=== PATIENT | female | born 1980 | race Two or more races ===

== ENCOUNTER 2020-02-11 09:48 | Day surgery (SDC) | payer OTHER ==
[~2020-02-11 09:48] MED LIST: ALBUTEROL; CELEXA10 MG PO; CLONAZEPAM0.5 MG PO; CLONAZEPAM2 MG PO; LITHOBID300 M1 PO; OLANZAPINE20 MG PO; PAXIL40 MG PO; RESTORIL30 M1 PO; SYMBICORT 16010.2 GM IH
[2020-02-11] MEDS ORDERED: PERCOCET 5-3251 EACH PO (12:00)
[2020-02-11] MEDS ORDERED: COLACE100 MG PO (12:00)
== END 2020-02-11 18:15 | disposition home or self-care (01) ==
LOC: CIR.AMB 09:48
PROVIDERS: ATTEND Surgery
DX: K60.1 Chronic anal fissure (principal); Z20.828 Contact with and (suspected) exposure to other viral communicable diseases

== ENCOUNTER 2021-06-25 11:28 | Day surgery (SDC) | payer OTHER ==
[~2021-06-25 11:28] MED LIST changes: +COLACE100 MG PO; +PERCOCET 5-3251 EACH PO
== END 2021-06-25 15:15 | disposition home or self-care (01) ==
LOC: AMB-ENDOS 11:28
PROVIDERS: ATTEND Surgery
DX: K62.89 Other specified diseases of anus and rectum (principal)